=== PATIENT | male | born 1985 | race Caucasian/White ===

== ENCOUNTER 2016-05-27 19:40 | Emergency (ER) | payer MEDICAID ==
[~2016-05-27] VITALS: Ht 165.1 cm; Wt 77.1 kg
[2016-05-27 20:00] VITALS: BP 143/86
[2016-05-27] MEDS ORDERED: IBUPROFEN 600 MG TAB PO ONE (22:00)
== END 2016-05-27 22:49 | disposition home or self-care (01) ==
LOC: ER 19:46
DX: S86.912A Strain of unspecified muscle(s) and tendon(s) at lower leg level, left leg, initial encounter (principal); X58.XXXA Exposure to other specified factors, initial encounter; Y93.02 Activity, running; Y99.8 Other external cause status; Y92.89 Other specified places as the place of occurrence of the external cause
CPT/HCPCS: 73562